=== PATIENT | female | born 1965 | race Caucasian/White ===

== ENCOUNTER 2021-12-09 14:34 | Observation (INO) ==
--- NOTE | 2021-12-09 14:46 | Emergency Department Note ---
Impression & Plan Facial droop, Acute hyponatremia, Metabolic acidosis, Slurred speech ED Provider Note NAME: MARTHA VELAZQUEZ AGE: 56 SEX: F : 1965 ARRIVES VIA: Ambulance INFORMANT: Patient, EMS ED PROVIDER(S): Asim Matute DO CHIEF COMPLAINT: Weakness HPI:. She notes she has not been feeling well for the past 3 days. She called EMS as she felt like she was short of breath. EMS noted slurred speech left- sided facial droop as well as a left upper extremity weakness and called a stroke alert and they brought her in. Patient denies any headache or change in vision. No chest pain. Denies any shortness of breath currently. No dysuria urgency or frequency. No other exacerbating or remitting factor history is limited as the patient was only answering yes/no questions s. ROS: See above HPI for pertinent positives & negatives. Review of systems was limited secondary to patient only answering yes and no PAST MEDICAL HISTORY:See Below PAST SURGICAL HISTORY:See Below FAMILY HISTORY:See Below SOCIAL HISTORY:See Below HOME MEDICATIONS:See Below ALLERGIES:See Below VITALS:See Below PHYSICAL EXAMINATION: GENERAL: Sitting up in stretcher, alert, chronically ill-appearing, disheveled EYE EXAM: normal conjunctiva. PERRL and EOM's intact. OROPHARYNX: mucous membranes are dry NECK: supple, no nuchal rigidity, no adenopathy, non-tender LUNGS: Clear to auscultation. Normal chest wall mechanics HEART: no murmurs, S1 normal and S2 normal ABDOMEN: abdomen soft, non-tender, normo-active bowel sounds, no masses, no rebound or guarding. UPPER EXTREMITIES: upper extremities are grossly normal. LOWER EXTREMITIES: No pitting edema. NEURO EXAM: Awake alert oriented to person but not year, left-sided facial droop, slurred speech, left upper extremity is weak with grasp as well as flexion extension at the wrist elbow and shoulder. Difficult the assessing the lower extremities but she is able to lift on her own and resist weight. Left appears to be slightly weaker than right MEDICAL DECISION MAKING: Patient is a 56-year-old female with a past medical history of GERD, hyperlipidemia and diabetes who presents ER for above-stated complaint. IV was established blood work was obtained. Labs show mild leukocytosis of 12,000. He moglobin was elevated at 16. Platelets were appropriate at 375. BMP with mild hyponatremia 131. CO2 was slightly low at 20. Glucose was elevated to 75. LFTs bilirubin was unremarkable. UA was contaminated. COVID was negative. Patient was given IV fluids. CTs as well as angios the head and neck were negative. Discussed with [place] telest[facility] Dr. Salinas and they agree with holding on tPA due to the last known well was about 3 days ago. Triage Nursing notes reviewed. Limited review of prior medical records performed Vital Signs: reviewed and remarkable for HTN Differential diagnosis: Differential Diagnosis includes but is not limited to ischemic Stroke, hemorrhagic stroke, bells palsy, mass, neoplasm, migraine headache, seizure, s ubarachnoid hemorrhage, TIA, and transient global amnesia. ER treatment provided: See below Diagnostics interpreted by me: ECG: This tachycardia rate of 119 Normal axis No PVCs QTC 447 Cardiac Monitoring: An order was placed for continuous cardiac monitoring. The monitor shows a rate of 112 with sinus rhythm. Laboratory studies: As stated above and show below. Imaging studies: CT as well as angios the head and neck were negative Consultation(s): Discussed with case here hospitalist for further evaluation Procedures: none Critical Care: None Past Med/Surg History Medical History (Updated 12/09/21 @ 16:38 by Asim Matute DO) Anxiety and depression Arthritis Contreras esophagus Cardiac murmur MILD/NO CARDS Chronic kidney disease ? STAGE Diabetes mellitus, type 2 GERD (gastroesophageal reflux disease) Hx of blood clots SUPERFICIAL BLOOD IN LEG>7 YEARS AGO Hyperlipidemia Hypertension Seasonal allergies Sleep apnea CPAP RECALLED>DOES NOT HAVE DEVICE Surgical History Family history of reaction to anesthesia DAUGHTER>SLOW TO WAKE UP H/O hernia repair AT 3 MONTHS OF AGE H/O shoulder surgery LEFT History of colonoscopy History of esophagogastroduodenoscopy (EGD) History of tonsillectomy Family History Mother Family history of diabetes mellitus Brother Family history of diabetes mellitus Grandfather (Maternal) Family hx of colon cancer Social History Smoking Status: Unknown if ever smoked Second Hand Exposure: Yes (IN THE PAST); Hx Alcohol Use: No Preferred Language: Mohawk [employer] Required: No Beliefs That Will Affect Care: None Current Living Situation: Alone Feels Safe at Home: Yes Assistive Devices: Glasses Allergies Allergies Allergy/AdvReac Type Severity Reaction Status Date / Time latex Allergy Mild RASH, ITCHY Verified 12/09/21 15:00 Home Meds Home Medications Medication Instructions Recorded Confirmed aspirin 81 mg tablet,delayed 81 mg PO HS 09/26/21 12/09/21 release atorvastatin 20 mg tablet 20 mg PO HS 09/26/21 12/09/21 cholecalciferol (vitamin D3) 50 50 mcg PO QAM 09/26/21 12/09/21 mcg (2,000 unit) capsule (Vitamin D3) dulaglutide 3 mg/0.5 mL 3 mg SUBCUT WK 09/26/21 12/09/21 subcutaneous pen injector (Trulicity) glipizide 5 mg tablet 5 mg PO QAM 09/26/21 12/09/21 losartan 100 mg tablet 100 mg PO QAM 09/26/21 12/09/21 metoprolol succinate 100 mg 100 mg PO QAM 09/26/21 12/09/21 tablet,extended release 24 hr omeprazole 40 mg capsule,delayed 40 mg PO DAILYBB 09/26/21 12/09/21 release paroxetine HCl 40 mg tablet 40 mg PO HS 09/26/21 12/09/21 ropinirole 0.5 mg tablet 1 mg PO HS 09/26/21 12/09/21 trazodone 100 mg tablet 100 mg PO HS 09/26/21 12/09/21 apple cider vinegar 500 mg tablet 500 mg PO DAILY 12/09/21 12/09/21 cyclobenzaprine 5 mg tablet 5 mg PO TID PRN 12/09/21 12/09/21 diclofenac sodium 1 % topical gel 2 g TOPICAL TID PRN 12/09/21 12/09/21 famotidine 40 mg tablet 40 mg PO HS PRN 12/09/21 12/09/21 ketorolac 10 mg tablet 10 mg PO DIRECTED PRN 12/09/21 12/09/21 levocetirizine 5 mg tablet (Xyzal) 5 mg PO DAILY 12/09/21 12/09/21 omega-3 fatty acids 1,000 mg 1,000 mg PO DAILY 12/09/21 12/09/21 capsule Results & Data (ED) Vital Signs Vital Signs - 24 hr 12/09/21 14:47 Temperature 36.8 C Temperature Source Oral Pulse Rate 126 H Respiratory Rate 16 Respiratory Effort / Characteristics Non-Labored Respiratory Depth Normal Blood Pressure 140/111 H Blood Pressure Mean 120 Pulse Oximetry 99 Oxygen Delivery Method Room Air Sepsis Recent Fever Within 48 Hours No Sepsis New/Unexplained Change in Mental Status Yes Sepsis Action Taken by Nursing Physician Notified Laboratory Data Result diagrams: 12/09/21 15:06 12/09/21 15:06 Lab Results 12/09/21 12/09/21 12/09/21 Range/Units 15:06 15:06 15:06 WBC 12.75 H (4.8-10.8) K/uL RBC 5.31 (4.2-5.4) M/uL Hgb 16.6 H (12.0-16.0) g/dL POC Hgb (12.0-16.0) g/dl Hct 48.7 H (37-47) % POC Hct (37-47) % MCV 91.7 (80-100) fL MCH 31.3 (25-34) pg MCHC 34.1 (32-36) g/dL RDW Std Deviation 45.6 (36.4-46.3) fL RDW Coeff of Gregorio 13.7 (11.5-14.5) % Plt Count 375 (130-400) K/uL MPV 9.2 (7.4-10.4) fL Immature Gran % (Auto) 0.2 % Neut % (Auto) 66.5 % Lymph % (Auto) 25.1 % Jackson % (Auto) 7.6 % Eos % (Auto) 0.4 % Baso % (Auto) 0.2 % Neut # (Auto) 8.49 H (1.4-6.5) K/uL Lymph # (Auto) 3.20 (1.2-3.4) K/uL Jackson # (Auto) 0.97 H (0.11-0.59) K/uL Eos # (Auto) 0.05 (0-0.5) K/uL Baso # (Auto) 0.02 (0-0.2) K/uL Immature Gran # (Auto) 0.02 (0.00-0.02) K/uL PT 11.3 (9.0-12.0) Seconds INR 1.1 (0.9-1.1) APTT 23.3 (21.0-31.0) Seconds PTT Ratio 0.8 POC Sodium (135-144) mmol/L Sodium 131 L (136-145) mmol/L POC Potassium (3.3-5.0) mmol/L Potassium 4.2 (3.5-5.1) mmol/L POC Chloride (101-112) mmol/L Chloride 97 L (98-107) mmol/L Carbon Dioxide 20 L (21-32) mmol/L POC Total CO2 (24-31) mmol/L Anion Gap 14 H (3-11) POC Anion Gap (16-25) mmol/L POC BUN (7-18) mg/dl BUN 16 (6-23) mg/dl Creatinine 1.19 (0.6-1.2) mg/dl POC Creatinine (0.6-1.3) mg/dl Est Cr Clr Drug Dosing 62.5 ml/min Est GFR ( Amer) 59.5 ml/min Est GFR (Non-Af Amer) 51.4 ml/min BUN/Creatinine Ratio 13.4 (10-20) Glucose 275 H (70-99(Fasting)) mg/dl POC Glucose (70-99) mg/dl POC Glucose (other) (70-99) mg/dl Calcium 10.3 H (8.5-10.1) mg/dl POC Ioniz Calcium Marni (1.12-1.32) mmol/l Magnesium 1.2 L (1.7-2.4) mg/dl Total Bilirubin 0.6 (0.2-1.0) mg/dl AST 27 (13-39) U/L ALT 36 (7-52) U/L Alkaline Phosphatase 90 (34-104) U/L Troponin I High Sens 6.8 (0-14) pg/ml Total Protein 7.7 (6.0-8.3) gm/dl Albumin 4.5 (3.4-5.0) gm/dl Globulin 3.2 (2.5-4.0) gm/dl Albumin/Globulin Ratio 1.4 (0.9-2) Urine Color Urine Appearance (Clear) Urine pH (4.5-7.5) Ur Specific [place] (1.000-1.030) Urine Protein (Negative) Urine Glucose (UA) (Negative) Urine Ketones (Negative) Urine Blood (Negative) Urine Nitrite (Negative) Urine Bilirubin (Negative) Urine Urobilinogen (Negative) Ur Leukocyte Esterase (Negative) SARS-CoV-2, RNA, NAAT (NEGATIVE) 12/09/21 12/09/21 12/09/21 Range/Units 15:09 15:10 15:11 WBC (4.8-10.8) K/uL RBC (4.2-5.4) M/uL Hgb (12.0-16.0) g/dL POC Hgb 16.7 H (12.0-16.0) g/dl Hct (37-47) % POC Hct 49 H (37-47) % MCV (80-100) fL MCH (25-34) pg MCHC (32-36) g/dL RDW Std Deviation (36.4-46.3) fL RDW Coeff of Gregorio (11.5-14.5) % Plt Count (130-400) K/uL MPV (7.4-10.4) fL Immature Gran % (Auto) % Neut % (Auto) % Lymph % (Auto) % Jackson % (Auto) % Eos % (Auto) % Baso % (Auto) % Neut # (Auto) (1.4-6.5) K/uL Lymph # (Auto) (1.2-3.4) K/uL Jackson # (Auto) (0.11-0.59) K/uL Eos # (Auto) (0-0.5) K/uL Baso # (Auto) (0-0.2) K/uL Immature Gran # (Auto) (0.00-0.02) K/uL PT (9.0-12.0) Seconds INR (0.9-1.1) APTT (21.0-31.0) Seconds PTT Ratio POC Sodium 133 L (135-144) mmol/L Sodium (136-145) mmol/L POC Potassium 4.2 (3.3-5.0) mmol/L Potassium (3.5-5.1) mmol/L POC Chloride 102 (101-112) mmol/L Chloride (98-107) mmol/L Carbon Dioxide (21-32) mmol/L POC Total CO2 18 L (24-31) mmol/L Anion Gap (3-11) POC Anion Gap 19.0 (16-25) mmol/L POC BUN 15 (7-18) mg/dl BUN (6-23) mg/dl Creatinine (0.6-1.2) mg/dl POC Creatinine 1.1 (0.6-1.3) mg/dl Est Cr Clr Drug Dosing ml/min Est GFR ( Amer) ml/min Est GFR (Non-Af Amer) ml/min BUN/Creatinine Ratio (10-20) Glucose (70-99(Fasting)) mg/dl POC Glucose 279 H 278 H (70-99) mg/dl POC Glucose (other) 282 H (70-99) mg/dl Calcium (8.5-10.1) mg/dl POC Ioniz Calcium Marni 1.06 L (1.12-1.32) mmol/l Magnesium (1.7-2.4) mg/dl Total Bilirubin (0.2-1.0) mg/dl AST (13-39) U/L ALT (7-52) U/L Alkaline Phosphatase (34-104) U/L Troponin I High Sens (0-14) pg/ml Total Protein (6.0-8.3) gm/dl Albumin (3.4-5.0) gm/dl Globulin (2.5-4.0) gm/dl Albumin/Globulin Ratio (0.9-2) Urine Color Urine Appearance (Clear) Urine pH (4.5-7.5) Ur Specific [place] (1.000-1.030) Urine Protein (Negative) Urine Glucose (UA) (Negative) Urine Ketones (Negative) Urine Blood (Negative) Urine Nitrite (Negative) Urine Bilirubin (Negative) Urine Urobilinogen (Negative) Ur Leukocyte Esterase (Negative) SARS-CoV-2, RNA, NAAT (NEGATIVE) 12/09/21 12/09/21 Range/Units 15:18 15:22 WBC (4.8-10.8) K/uL RBC (4.2-5.4) M/uL Hgb (12.0-16.0) g/dL POC Hgb (12.0-16.0) g/dl Hct (37-47) % POC Hct (37-47) % MCV (80-100) fL MCH (25-34) pg MCHC (32-36) g/dL RDW Std Deviation (36.4-46.3) fL RDW Coeff of Gregorio (11.5-14.5) % Plt Count (130-400) K/uL MPV (7.4-10.4) fL Immature Gran % (Auto) % Neut % (Auto) % Lymph % (Auto) % Jackson % (Auto) % Eos % (Auto) % Baso % (Auto) % Neut # (Auto) (1.4-6.5) K/uL Lymph # (Auto) (1.2-3.4) K/uL Jackson # (Auto) (0.11-0.59) K/uL Eos # (Auto) (0-0.5) K/uL Baso # (Auto) (0-0.2) K/uL Immature Gran # (Auto) (0.00-0.02) K/uL PT (9.0-12.0) Seconds INR (0.9-1.1) APTT (21.0-31.0) Seconds PTT Ratio POC Sodium (135-144) mmol/L Sodium (136-145) mmol/L POC Potassium (3.3-5.0) mmol/L Potassium (3.5-5.1) mmol/L POC Chloride (101-112) mmol/L Chloride (98-107) mmol/L Carbon Dioxide (21-32) mmol/L POC Total CO2 (24-31) mmol/L Anion Gap (3-11) POC Anion Gap (16-25) mmol/L POC BUN (7-18) mg/dl BUN (6-23) mg/dl Creatinine (0.6-1.2) mg/dl POC Creatinine (0.6-1.3) mg/dl Est Cr Clr Drug Dosing ml/min Est GFR ( Amer) ml/min Est GFR (Non-Af Amer) ml/min BUN/Creatinine Ratio (10-20) Glucose (70-99(Fasting)) mg/dl POC Glucose (70-99) mg/dl POC Glucose (other) (70-99) mg/dl Calcium (8.5-10.1) mg/dl POC Ioniz Calcium Marni (1.12-1.32) mmol/l Magnesium (1.7-2.4) mg/dl Total Bilirubin (0.2-1.0) mg/dl AST (13-39) U/L ALT (7-52) U/L Alkaline Phosphatase (34-104) U/L Troponin I High Sens (0-14) pg/ml Total Protein (6.0-8.3) gm/dl Albumin (3.4-5.0) gm/dl Globulin (2.5-4.0) gm/dl Albumin/Globulin Ratio (0.9-2) Urine Color Yellow Urine Appearance Clear (Clear) Urine pH 6.5 (4.5-7.5) Ur Specific [place] > 1.045 H (1.000-1.030) Urine Protein Trace H (Negative) Urine Glucose (UA) Trace H (Negative) Urine Ketones 1+ H (Negative) Urine Blood Negative (Negative) Urine Nitrite Negative (Negative) Urine Bilirubin Negative (Negative) Urine Urobilinogen Negative (Negative) Ur Leukocyte Esterase Negative (Negative) SARS-CoV-2, RNA, NAAT NEGATIVE (NEGATIVE) Administered Medications Discontinued Medications Ioversol (Optiray 320 125ml) 120 ml IV ONCE ONE Stop: 12/09/21 14:52 Last Admin: 12/09/21 14:51 Dose: 120 ml Documented by: [id number] Imaging Data Radiologist's Impression: Chest X-Ray 12/09/21 14:08 XR chest 1V portable CLINICAL HISTORY: Stroke Like Symptoms TECHNIQUE: Single frontal radiograph of the chest was obtained. Comparison: None available at the time of this dictation. FINDINGS: No lines and tubes are seen. The cardiomediastinal silhouette is normal. The lungs are clear. No evidence of pleural effusion or pneumothorax. IMPRESSION: No acute chest disease. ACT 112: Negative or not required by law. Electronically signed by: Juan A Allen M.D. 12/09/2021 3:[address] 12/09/21 14:08 CT head/brain wo con CLINICAL HISTORY: Stroke Like Symptoms Technique: Contiguous axial CT images of the head were acquired from the base of the skull to the vertex without intravenous contrast administration. Images were viewed in brain, subdural and bone windows. Automated dose lowering techniques and/or adjustment according to patient size were utilized for this exam. Comparison: None available at the time of this dictation. Findings: The ventricles, basal cisterns, and cerebral sulci are normal. There is no acute intracranial hemorrhage or evidence of acute territorial infarction. Neither mass effect, shift of the midline structures, nor abnormal extra-axial fluid collections are shown. Imaged portions of the paranasal sinuses and mastoid air cells are clear. The orbits appear normal. There are no acute fractures of the calvaria or scalp swelling. Impression: No acute intracranial hemorrhage, no evidence of acute territorial infarction or other acute intracranial disease process. ACT 112: Negative or not required by law. Electronically signed by: Juan A Allen M.D. 12/09/2021 2:52 PM Head CTA 12/09/21 14:08 CTA ANGIOGRAPHY OF THE HEAD CLINICAL HISTORY: Stroke Like Symptoms COMPARISON STUDY: No previous studies for comparison. TECHNIQUE: Helical axial images of the head were obtained following uneventful intravenous administration of 120 cc of Optiray. Sagittal and coronal reconstructions were viewed as well as maximal intensity projections on an independent 3-D workstation. Automated exposure control was utilized for the study. A dose lowering technique was utilized adhering to the principles of ALARA. FINDINGS: Please note that the head CT will be reported separately. Brain volume is normal. Ventricular system is normal. Basal cisterns are patent. This exam is mildly compromised by artifact. However, the bilateral M1, M2, A1 and A2 segments appear patent. There is no central vessel occlusion. There is no intracranial aneurysm. Posterior circulation is intact. There are bilateral posterior communicating arteries. IMPRESSION: Exam mildly compromised by artifact. No central vessel occlusion or intracranial aneurysm identified. ACT 112: Negative or not required by law. Electronically signed by: Enmanuel Quesada M.D. 12/09/2021 3:05 PM Neck CTA 12/09/21 14:08 CT ANGIOGRAPHY OF THE NECK WITH CONTRAST CLINICAL HISTORY: Stroke Like Symptoms COMPARISON STUDY: No previous studies for comparison. Technique: CT angiography of the carotid and vertebral arteries was obtained using Optiray and 3D reconstruction on an independent workstation. NASCET criteria was utilized. Automated exposure control was utilized for the study. A dose lowering technique was utilized adhering to the principles of ALARA. Findings: This exam is mildly compromised by artifact. The bilateral common carotid, cervical internal carotid and vertebral arteries are patent. Left vertebral artery is dominant. No stenosis or dissection within these vessels. There is no aneurysm within the neck. There is mild dilatation of the main pulmonary artery. Visualized portions of the lung apices are unremarkable. There is no acute cervical spine fracture. There is no cervical lymphadenopathy. IMPRESSION: Exam mildly compromised by artifact. No stenosis or dissection within the bilateral common carotid, cervical internal carotid or vertebral arteries. ACT 112: Negative or not required by law. Electronically signed by: Enmanuel Quesada M.D. 12/09/2021 3:25 PM Discharge Plan Visit Data Chief Complaint: Stroke Alert Stated Complaint: STROKE ED Provider: Asim Matute Discharge Problem: Facial droop, Acute hyponatremia, Metabolic acidosis, Slurred speech Forms Stand Alone Forms: [facility] [place] [facility] Prescriptions Prescriptions: No Action atorvastatin 20 mg Tablet 20 mg PO HS RF: 0 metoprolol succinate 100 mg Tablet Extended Release 24 Hr 100 mg PO QAM RF: 0 omeprazole 40 mg Capsule,Delayed Release(Dr/Ec) 40 mg PO DAILYBB RF: 0 aspirin [Aspir-81] 81 mg Tablet,Delayed Release (Dr/Ec) 81 mg PO HS RF: 0 trazodone 100 mg Tablet 100 mg PO HS RF: 0 ropinirole [Requip] 0.5 mg Tablet 1 mg PO HS RF: 0 paroxetine HCl 40 mg Tablet 40 mg PO HS RF: 0 losartan 100 mg Tablet 100 mg PO QAM RF: 0 cholecalciferol (vitamin D3) [Vitamin D3] 50 mcg (2,000 unit) Capsule 50 mcg PO QAM RF: 0 Trulicity 3 mg/0.5 mL Pen Injector 3 mg SUBCUT WK RF: 0 glipizide 5 mg Tablet 5 mg PO QAM RF: 0 famotidine 40 mg Tablet 40 mg PO HS PRN (Reason: Heartburn) RF: 0 ketorolac 10 mg Tablet 10 mg PO DIRECTED PRN (Reason: Back Pain) RF: 0 cyclobenzaprine 5 mg Tablet 5 mg PO TID PRN (Reason: MUSCLE SPASMS) RF: 0 levocetirizine [Xyzal] 5 mg Tablet 5 mg PO DAILY RF: 0 omega-3 fatty acids 1,000 mg Capsule 1,000 mg PO DAILY RF: 0 apple cider vinegar 500 mg Tablet 500 mg PO DAILY RF: 0 diclofenac sodium 1 % gel 2 g TOPICAL TID PRN (Reason: Pain) RF: 0 Referrals Referrals: [facility],Medicine [Primary Care Provider] -
[2021-12-09] MEDS ORDERED: OPTIRAY 320 125ml IV ONE (14:51)
--- NOTE | 2021-12-09 14:53 | CT Scan Report ---
CT head/brain wo con CLINICAL HISTORY: Stroke Like Symptoms Technique: Contiguous axial CT images of the head were acquired from the base of the skull to the kalyani treasure without intravenous contrast administration. Images were viewed in brain, subdural and bone [facility] . Automated dose lowering techniques and/or adjustment according to patient size were utilized for this exam. Comparison: None available at the time of this dictation. Findings: The ventricles, basal cisterns, and cerebral sulci are normal. There is no acute intracranial hemorrh age or evidence of acute territorial infarction. Neither mass effect, shift of the midline structures , nor abnormal extra-axial fluid collections are shown. Imaged portions of the paranasal sinuses and mastoid air cells are clear. The orbits appear normal. There are no acute fractures of the calvaria or scalp swelling. Impression: No acute intracranial hemorrhage, no evidence of acute territorial infarction or other acute intracra nial disease process. ACT 112: Negative or not required by law. Electronically signed by: Juan A Allen M.D. 12/09/2021 2:52 PM
--- NOTE | 2021-12-09 15:06 | CT Scan Report ---
CTA ANGIOGRAPHY OF THE HEAD CLINICAL HISTORY: Stroke Like Symptoms COMPARISON STUDY: No previous studies for comparison. TECHNIQUE: Helical axial images of the head were obtained following uneventful intravenous administr ation of 120 cc of Optiray. Sagittal and coronal reconstructions were viewed as well as maximal inten sity projections on an independent 3-D workstation. Automated exposure control was utilized for the study. A dose lowering technique was utilized adhering to the principles of ALARA. FINDINGS: Please note that the head CT will be reported separately. Brain volume is normal. Ventricul ar system is normal. Basal cisterns are patent. This exam is mildly compromised by artifact. However, the bilateral M1, M2, A1 and A2 segments appear patent. There is no central vessel occlusion. There is no intracranial aneurysm. Posterior circulation is intact. There are bilateral posterior communica ting arteries. IMPRESSION: Exam mildly compromised by artifact. No central vessel occlusion or intracranial aneurys m identified. ACT 112: Negative or not required by law. Electronically signed by: Enmanuel Quesada M.D. 12/09/2021 3:05 PM
[2021-12-09 15:18] LABS: Basophils # (auto) 0.02 K/uL (0-0.2); Basophils % (auto) 0.2 %; Eosinophils # (auto) 0.05 K/uL (0-0.5); Eosinophils % (auto) 0.4 %; Hematocrit (blood only) 48.7 % (37-47); Hemoglobin 16.6 g/dL (12.0-16.0); Immature Granulocytes # (auto) 0.02 K/uL (0.00-0.02); Immature Granulocytes % (auto) 0.2 %; Lymphocytes % (auto) 25.1 %; Mean Corpuscular Hemoglobin 31.3 pg (25-34); Mean Corpuscular Hgb Conc 34.1 g/dL (32-36); Mean Corpuscular Volume 91.7 fL (80-100); Mean Platelet Volume 9.2 fL (7.4-10.4); Monocytes # (auto) 0.97 K/uL (0.11-0.59); Monocytes % (auto) 7.6 %; Neutrophils # (auto) 8.49 K/uL (1.4-6.5); Neutrophils % (auto) 66.5 %; Platelet Count 375 K/uL (130-400); RDW Coefficient of Variation 13.7 % (11.5-14.5); RDW Standard Deviation 45.6 fL (36.4-46.3); Red Blood Count 5.31 M/uL (4.2-5.4); White Blood Count 12.75 K/uL (4.8-10.8)
[2021-12-09 15:23] LABS: iSTAT Creatinine 1.1 mg/dl (0.6-1.3); iSTAT Hemoglobin 16.7 g/dl (12.0-16.0); iSTAT Ionized Calcium 1.06 mmol/l (1.12-1.32); iSTAT Potassium 4.2 mmol/L (3.3-5.0)
--- NOTE | 2021-12-09 15:26 | CT Scan Report ---
CT ANGIOGRAPHY OF THE NECK WITH CONTRAST CLINICAL HISTORY: Stroke Like Symptoms COMPARISON STUDY: No previous studies for comparison. Technique: CT angiography of the carotid and vertebral arteries was obtained using Optiray and 3D rec onstruction on an independent workstation. NASCET criteria was utilized. Automated exposure control was utilized for the study. A dose lowering technique was utilized adhering to the principles of ALA RA. Findings: This exam is mildly compromised by artifact. The bilateral common carotid, cervical interna l carotid and vertebral arteries are patent. Left vertebral artery is dominant. No stenosis or dissec tion within these vessels. There is no aneurysm within the neck. There is mild dilatation of the main pulmonary artery. Visualized portions of the lung apices are unremarkable. There is no acute cervica l spine fracture. There is no cervical lymphadenopathy. IMPRESSION: Exam mildly compromised by artifact. No stenosis or dissection within the bilateral common carotid, c ervical internal carotid or vertebral arteries. ACT 112: Negative or not required by law. Electronically signed by: Enmanuel Quesada M.D. 12/09/2021 3:25 PM
--- NOTE | 2021-12-09 15:35 | XRay Report ---
XR chest 1V portable CLINICAL HISTORY: Stroke Like Symptoms TECHNIQUE: Single frontal radiograph of the chest was obtained. Comparison: None available at the time of this dictation. FINDINGS: No lines and tubes are seen. The cardiomediastinal silhouette is normal. The lungs are clear. No evid ence of pleural effusion or pneumothorax. IMPRESSION: No acute chest disease. ACT 112: Negative or not required by law. Electronically signed by: Juan A Allen M.D. 12/09/2021 3:33 PM
[2021-12-09 15:51] LABS: INR 1.1 (0.9-1.1); Partial Thromboplastin Ratio 0.8; Partial Thromboplastin Time 23.3 Seconds (21.0-31.0); Prothrombin Time 11.3 Seconds (9.0-12.0)
[2021-12-09 16:04] LABS: Appearance Urine Clear (Clear); Bacteria Urine Automated Negative (Negative); Bilirubin Urine Negative (Negative); Blood Urine Negative (Negative); Color Urine Yellow; Epithelial Cell Urine Auto >30 /lpf (0-5); Glucose Urine UA Trace (Negative); Ketones Urine 1+ (Negative); Leukocyte Esterase Urine Negative (Negative); Nitrite Urine Negative (Negative); Protein Urine Trace (Negative); RBC Urine Automated 0-4 /hpf (0-4); Specific Gravity Urine > 1.045 (1.000-1.030); Urobilinogen Urine Negative (Negative); pH Urine 6.5 (4.5-7.5)
[2021-12-09 16:11] LABS: Albumin Globulin Ratio 1.4 (0.9-2); Albumin Level 4.5 gm/dl (3.4-5.0); BUN Creatinine Ratio 13.4 (10-20); Bilirubin,Total 0.6 mg/dl (0.2-1.0); Calcium 10.3 mg/dl (8.5-10.1); Creatinine Clr Calc Pharmacy 62.5 ml/min; Est GFR (African American) 59.5 ml/min; Est GFR (Non-African American) 51.4 ml/min; Globulin 3.2 gm/dl (2.5-4.0); Magnesium 1.2 mg/dl (1.7-2.4); Potassium 4.2 mmol/L (3.5-5.1); Total Protein 7.7 gm/dl (6.0-8.3)
[2021-12-09 16:12] LABS: Troponin I High Sensitivity 6.8 pg/ml (0-14)
[2021-12-09] MEDS ORDERED: SODIUM CHLORIDE 0.9% 1000ML 1,000 ML IV ONE (16:32)
[2021-12-09 16:34] LABS: Renal Epithelial Cells Urine 0-5 /lpf (0-5)
--- NOTE | 2021-12-09 17:40 | History & Physical Report ---
Date of Service December 09, 2021 Assessment & Plan (1) Stroke-like symptom: Plan: In the ED, symptoms have mostly resolved. Initial CT negative for ischemia. Per telestroke, not a candidate for tPA with last known well 2-3 days ago. - Admit to PCU for observation - Neuro checks per protocol - Consult neurology - Continue aspirin - MRI Brain, ECHO - Trend troponin - PT/OT/Speech consults per stroke protocol (2) Hypomagnesemia: Plan: Replete with IV Mag x 3 g - recheck tonight and in AM (3) Acute hyponatremia: (4) CKD (chronic kidney disease) stage 3, GFR 30-59 ml/min: (5) Hyperlipidemia: Plan: - Lipid panel in AM - Continue statin - pt unsure if she has been taking it regularly as outpatient (6) GERD (gastroesophageal reflux disease): (7) Diabetes mellitus, type 2: Plan: - Check A1c in AM - Diabetic diet - Insulin sliding scale (8) Seasonal allergies: (9) Sleep apnea: Plan: - Resume CPAP with prior settings - will need outpatient sleep follow-up Plan: Holding BP meds for now - re-evaluate in AM Continue other home medications as appropriate Pt seen and reviewed with attending physician, Dr. Tovar. Plan of care discussed and as outlined above. Code Status: Full code DVT Prophylaxis: SubQ heparin Mandy Mendosa PA-C History of Present Illness Chief Complaint: Stroke Alert Primary Care Provider: Skylar Guzman PA-C ([facility]) This is a 56 y/o female with a PMH of DM2, HTN, dyslipidemia, JOSEE not currently on CPAP, depression, anxiety, CKD3, GERD w/ hx Contreras's, and obesity who presents to the ED this afternoon as a stroke alert. Pt reports feeling okay on Thursday (two days ago). Yesterday, she felt not right and like "something was off in my head" but no significant pain or dyspnea. Last night, she slept okay but when she woke up this morning she "felt like crap" but no specific pain. She checked her blood sugar but can't remember what it was. She took her AM meds hoping this would help her feel better but instead she felt worse, got really dizzy and had to sit down so she called 911. When EMS arrived, she apparently had a mild left facial droop, LUE weakness, and slurred speech so a stroke alert was called. Pt has limited to no recollection of anything after calling 911 to when I saw her in the ED for admission. In the ED, her symptoms have gradually improved although she reports a residual headache behind her left eye. The weakness and slurred speech have resolved. She also reports significant anxiety related to today's events and depression after the recent of her mother in October. She essentially lives alone as her significant other is a long-distance tow truck operator and is away most of the week. Allergies Allergy/AdvReac Type Severity Reaction Status Date / Time latex Allergy Mild RASH, ITCHY Verified 12/09/21 15:00 Home Medications Medication Instructions Recorded Confirmed Type aspirin 81 mg tablet,delayed 81 mg PO HS 09/26/21 12/09/21 History release atorvastatin 20 mg tablet 20 mg PO HS 09/26/21 12/09/21 History cholecalciferol (vitamin D3) 50 50 mcg PO QAM 09/26/21 12/09/21 History mcg (2,000 unit) capsule (Vitamin D3) dulaglutide 3 mg/0.5 mL 3 mg SUBCUT WK 09/26/21 12/09/21 History subcutaneous pen injector (Trulicity) losartan 100 mg tablet 100 mg PO QAM 09/26/21 12/09/21 History metoprolol succinate 100 mg 100 mg PO QAM 09/26/21 12/09/21 History tablet,extended release 24 hr omeprazole 40 mg capsule,delayed 40 mg PO DAILYBB 09/26/21 12/09/21 History release paroxetine HCl 40 mg tablet 40 mg PO HS 09/26/21 12/09/21 History ropinirole 0.5 mg tablet 1 mg PO HS 09/26/21 12/09/21 History trazodone 100 mg tablet 100 mg PO HS 09/26/21 12/09/21 History apple cider vinegar 500 mg tablet 500 mg PO DAILY 12/09/21 12/09/21 History cyclobenzaprine 5 mg tablet 5 mg PO TID PRN 12/09/21 12/09/21 History diclofenac sodium 1 % topical gel 2 g TOPICAL TID PRN 12/09/21 12/09/21 History famotidine 40 mg tablet 40 mg PO HS 12/09/21 12/09/21 History glipizide 5 mg tablet, extended 5 mg PO QAM 12/09/21 12/09/21 History release 24 hr levocetirizine 5 mg tablet (Xyzal) 5 mg PO DAILY 12/09/21 12/09/21 History omega-3 fatty acids 1,000 mg 1,000 mg PO DAILY 12/09/21 12/09/21 History capsule Past Med/Surg History Medical History (Updated 12/09/21 @ 18:07 by Addis Mendosa PA-C) Anxiety and depression Arthritis Contreras esophagus Cardiac murmur MILD/NO CARDS Chronic kidney disease ? STAGE Diabetes mellitus, type 2 GERD (gastroesophageal reflux disease) Hx of blood clots SUPERFICIAL BLOOD IN LEG>7 YEARS AGO Hyperlipidemia Hypertension Seasonal allergies Sleep apnea CPAP RECALLED>DOES NOT HAVE DEVICE. Previously used auto CPAP 5-20 cm Surgical History Family history of reaction to anesthesia DAUGHTER>SLOW TO WAKE UP H/O hernia repair AT 3 MONTHS OF AGE H/O shoulder surgery LEFT History of colonoscopy History of esophagogastroduodenoscopy (EGD) History of tonsillectomy Family History (Updated 12/09/21 @ 17:58 by Addis Mendosa PA-C) Mother Family history of diabetes mellitus Heart disease Brother Family history of diabetes mellitus Heart disease Grandfather (Maternal) Family hx of colon cancer Father Heart disease Denies family history of Stroke Social History (Updated 12/09/21 @ 17:59 by Addis Mendosa PA-C) Smoking Status: Never smoker Second Hand Exposure: Yes (IN THE PAST); Hx Alcohol Use: No Hx Substance Use: No Preferred Language: Bel[place]an Parimutuel Ticket [employer]er Required: No Beliefs That Will Affect Care: None Current Living Situation: Alone Feels Safe at Home: Yes Assistive Devices: Glasses Review of Systems Review of Systems: All systems reviewed & are unremarkable except as noted in HPI & below Constitutional: + anorexia; no fever, no chills and no sweats Eyes: no diplopia Ear, Nose, Mouth, Throat: no nasal congestion, no sore throat and no dysphagia Respiratory: no cough, no dyspnea and no wheezing Cardiovascular: + lightheadedness; no chest pain, no palpitations and no edema Gastrointestinal: no abdominal pain, no nausea, no vomiting, no diarrhea/loose stools and no blood in stools Genitourinary: no dysuria and no hematuria Musculoskeletal: no back pain and no neck pain Integumentary: no rash and no yellowing of the skin Neurologic: as per Subjective / HPI Psychiatric: + depression and + anxiety Physical Exam Constitutional: + morbidly obese; no acute distress Eyes: PERRL, conjunctivae normal, anicteric sclerae Neck: trachea midline Respiratory: no respiratory distress and no labored breathing Auscultation: lungs clear to auscultation bilaterally; no rales, no rhonchi and no wheezes Cardiovascular: Rate/Rhythm: regular rhythm and + tachycardic Vessels: dorsalis pedis pulses present and radial pulses present Extremities: no pedal edema Gastrointestinal (Abdomen): Inspection/Auscultation: normal bowel sounds; abdomen not distended Percussion/Palpation: abdomen soft; abdomen nontender Musculoskeletal: Head/Neck/Chest: normocephalic, head atraumatic and neck supple Skin: no rashes, warm and dry Neurologic: CN's II-XI intact bilaterally and moves all extremities; no focal motor deficits and not confused Psychiatric: Orientation: alert and oriented x 3 Affect: + anxious affect Mood: + depressed mood and + anxious mood Results & Data Results & Data ([facility]) Vital Signs (Past 12 Hours) Vital Signs Temp Pulse Resp BP Pulse Ox 12/09/21 14:47 36.8 C 126 H 16 140/111 H 99 Laboratory Results Laboratory Results - last 24 hr 12/09/21 12/09/21 12/09/21 15:06 15:06 15:06 WBC 12.75 H RBC 5.31 Hgb 16.6 H POC Hgb Hct 48.7 H POC Hct MCV 91.7 MCH 31.3 MCHC 34.1 RDW Std Deviation 45.6 RDW Coeff of Gregorio 13.7 Plt Count 375 MPV 9.2 Immature Gran % (Auto) 0.2 Neut % (Auto) 66.5 Lymph % (Auto) 25.1 Stephens % (Auto) 7.6 Eos % (Auto) 0.4 Baso % (Auto) 0.2 Neut # (Auto) 8.49 H Lymph # (Auto) 3.20 Stephens # (Auto) 0.97 H Eos # (Auto) 0.05 Baso # (Auto) 0.02 Immature Gran # (Auto) 0.02 PT 11.3 INR 1.1 APTT 23.3 PTT Ratio 0.8 POC Sodium Sodium 131 L POC Potassium Potassium 4.2 POC Chloride Chloride 97 L Carbon Dioxide 20 L POC Total CO2 Anion Gap 14 H POC Anion Gap POC BUN BUN 16 Creatinine 1.19 POC Creatinine Est Cr Clr Drug Dosing 62.5 Est GFR ( Amer) 59.5 Est GFR (Non-Af Amer) 51.4 BUN/Creatinine Ratio 13.4 Glucose 275 H POC Glucose POC Glucose (other) Calcium 10.3 H POC Ioniz Calcium Marni Magnesium 1.2 L Total Bilirubin 0.6 AST 27 ALT 36 Alkaline Phosphatase 90 Troponin I High Sens 6.8 Total Protein 7.7 Albumin 4.5 Globulin 3.2 Albumin/Globulin Ratio 1.4 Urine Color Urine Appearance Urine pH Ur Specific [place] Urine Protein Urine Glucose (UA) Urine Ketones Urine Blood Urine Nitrite Urine Bilirubin Urine Urobilinogen Ur Leukocyte Esterase Urine WBC (Auto) Urine RBC (Auto) U Hyaline Cast (Auto) U Epithel Cells (Auto) Urine Bacteria (Auto) Ur Renal Epithelial Cell Granular Casts SARS-CoV-2, RNA, NAAT 12/09/21 12/09/21 12/09/21 15:09 15:10 15:11 WBC RBC Hgb POC Hgb 16.7 H Hct POC Hct 49 H MCV MCH MCHC RDW Std Deviation RDW Coeff of Gregorio Plt Count MPV Immature Gran % (Auto) Neut % (Auto) Lymph % (Auto) Stephens % (Auto) Eos % (Auto) Baso % (Auto) Neut # (Auto) Lymph # (Auto) Stephens # (Auto) Eos # (Auto) Baso # (Auto) Immature Gran # (Auto) PT INR APTT PTT Ratio POC Sodium 133 L Sodium POC Potassium 4.2 Potassium POC Chloride 102 Chloride Carbon Dioxide POC Total CO2 18 L Anion Gap POC Anion Gap 19.0 POC BUN 15 BUN Creatinine POC Creatinine 1.1 Est Cr Clr Drug Dosing Est GFR ( Amer) Est GFR (Non-Af Amer) BUN/Creatinine Ratio Glucose POC Glucose 279 H 278 H POC Glucose (other) 282 H Calcium POC Ioniz Calcium Marni 1.06 L Magnesium Total Bilirubin AST ALT Alkaline Phosphatase Troponin I High Sens Total Protein Albumin Globulin Albumin/Globulin Ratio Urine Color Urine Appearance Urine pH Ur Specific [place] Urine Protein Urine Glucose (UA) Urine Ketones Urine Blood Urine Nitrite Urine Bilirubin Urine Urobilinogen Ur Leukocyte Esterase Urine WBC (Auto) Urine RBC (Auto) U Hyaline Cast (Auto) U Epithel Cells (Auto) Urine Bacteria (Auto) Ur Renal Epithelial Cell Granular Casts SARS-CoV-2, RNA, NAAT 12/09/21 12/09/21 15:18 15:22 WBC RBC Hgb POC Hgb Hct POC Hct MCV MCH MCHC RDW Std Deviation RDW Coeff of Gregorio Plt Count MPV Immature Gran % (Auto) Neut % (Auto) Lymph % (Auto) Stephens % (Auto) Eos % (Auto) Baso % (Auto) Neut # (Auto) Lymph # (Auto) Stephens # (Auto) Eos # (Auto) Baso # (Auto) Immature Gran # (Auto) PT INR APTT PTT Ratio POC Sodium Sodium POC Potassium Potassium POC Chloride Chloride Carbon Dioxide POC Total CO2 Anion Gap POC Anion Gap POC BUN BUN Creatinine POC Creatinine Est Cr Clr Drug Dosing Est GFR ( Amer) Est GFR (Non-Af Amer) BUN/Creatinine Ratio Glucose POC Glucose POC Glucose (other) Calcium POC Ioniz Calcium Marni Magnesium Total Bilirubin AST ALT Alkaline Phosphatase Troponin I High Sens Total Protein Albumin Globulin Albumin/Globulin Ratio Urine Color Yellow Urine Appearance Clear Urine pH 6.5 Ur Specific [place] > 1.045 H Urine Protein Trace H Urine Glucose (UA) Trace H Urine Ketones 1+ H Urine Blood Negative Urine Nitrite Negative Urine Bilirubin Negative Urine Urobilinogen Negative Ur Leukocyte Esterase Negative Urine WBC (Auto) 5-10 H Urine RBC (Auto) 0-4 U Hyaline Cast (Auto) 5-10 H U Epithel Cells (Auto) >30 H Urine Bacteria (Auto) Negative Ur Renal Epithelial Cell 0-5 Granular Casts 1-5 H SARS-CoV-2, RNA, NAAT NEGATIVE Diagnostic Findings Chest X-ray 12/09/21 - IMPRESSION: No acute chest disease. CT Head 12/09/21 - Impression: No acute intracranial hemorrhage, no evidence of acute territorial infarction or other acute intracranial disease process. CTA Head 12/09/21 - IMPRESSION: Exam mildly compromised by artifact. No central vessel occlusion or intracranial aneurysm identified. CTA Neck 12/09/21 - IMPRESSION: Exam mildly compromised by artifact. No stenosis or dissection within the bilateral common carotid, cervical internal carotid or vertebral arteries. Medications Administered Magnesium Sulfate/Dextrose (Magnesium Sulfate / D5w) 1 gm in 100 mls @ 50 mls/hr IV Q2H MELISA Stop: 12/09/21 23:29 Last Admin: 12/09/21 17:41 Dose: 50 mls/hr Documented by: [id number] Discontinued Medications Sodium Chloride (Nss 1000ml) 1,000 mls @ 999 mls/hr IV .Q1H1M ONE Stop: 12/09/21 17:32 Last Admin: 12/09/21 17:30 Dose: 999 mls/hr Documented by: [id number] Ioversol (Optiray 320 125ml) 120 ml IV ONCE ONE Stop: 12/09/21 14:52 Last Admin: 12/09/21 14:51 Dose: 120 ml Documented by: [id number] Code Status & VTE Plan VTE Prophylaxis Plan VTE Prophylaxis will be ordered: Yes Supervising Physician Co-Signing Physician Notes 56-year-old lady who presented with strokelike symptoms, symptoms mostly resolved by the time of presentation. Initial CT negative for ischemia. Also found to be hypomagnesemia, repleted. Per telestroke, patient not candidate for tPA. MRI brain. Neuro consult. Echo. Hold blood pressure medication to allow for permissive hypertension. Lipid panel in AM. Patient also had lost her mother in the last month, had lost her brother and father in the last 3-year. Patient appears sad, has lost appetite, uses trazodone for sleeping. Patient offered behavioral health counseling or psychiatry consult, patient denied. Patient is in talks with her psychiatry doctor in [place], last follow-up was last week prior to arrival. At bedside exam, patient reports improvement in her dizziness symptoms and funny sensation in her forehead which were the main complaints that brought her to the ED today. Upon exam GENERAL: Alert and oriented x3. NAD, on RA. Obese. Appears sad. HEENT: No pallor, no icterus. Pupils equal, round and reactive to light. Oral mucosa moist. NECK: No JVD, no neck masses. HEART: S1 and S2 heard. Regular rate and rhythm. No murmur, no gallop. RESPIRATORY SYSTEM: Normal AP diameter. No accessory muscle use. No wheezing, no crackles. ABDOMEN: Soft, bowel sounds present, nontender, no distention. CENTRAL NERVOUS SYSTEM: No facial droop. Speech is clear. Obeys simple commands. Moves extremities. EXTREMITIES: No edema, no erythema seen. I have seen and examined the patient and have discussed the case with the provider above. I agree with the assessment and plan as stated.
[2021-12-09] MEDS: MAGNESIUM SULFATE / D5W 1 GM/100 ML BAG IV SCH ×3 (17:41→22:44)
--- NOTE | 2021-12-09 18:42 | Electrocardiogram Report ---
Test Reason : Blood Pressure : / mmHG Vent. Rate : 119 BPM Atrial Rate : 119 BPM P-R Int : 134 ms QRS Dur : 090 ms QT Int : 318 ms P-R-T Axes : 058 016 060 degrees QTc Int : 447 ms Poor data quality, interpretation may be adversely affected Sinus tachycardia Poor R wave progression, consider anterior [place] vs. lead placement vs. LVH Abnormal ECG Confirmed by Luis M Zimmerman ([id number]) on 12/09/2021 6:42:01 PM Referred By: REFERRED SELF Confirmed By:Terrell Zimmerman
[2021-12-09] MEDS ORDERED: PHARMACIST DISCHARGE MED REC CONSULT PRN (19:39)
[2021-12-09] MEDS ORDERED: DEXTROSE 50% 50 ML SYRINGE IV PRN (19:39)
[2021-12-09] MEDS ORDERED: CARBOHYDRATES FOR HYPOGLYCEMIA PO PRN (19:39)
[2021-12-09] MEDS ORDERED: GLUCOSE 40% GEL 15 GM TUBE PO PRN (19:39)
[2021-12-09] MEDS ORDERED: GLUCOSE 10 TABS/TUBE PO PRN (19:39)
[2021-12-09] MEDS ORDERED: GLUCAGON FOR INJ 1 MG VIAL SQ PRN (19:39)
[2021-12-09] MEDS ORDERED: rOPINIRole HCL 1 MG TABLET PO SCH (21:00)
[2021-12-09] MEDS ORDERED: traZODone HCL 100 MG TAB PO SCH (21:00)
[2021-12-09] MEDS ORDERED: ATORVASTATIN 20 MG TAB PO SCH (21:00)
[2021-12-09] MEDS ORDERED: ASPIRIN 81 MG ECTAB PO SCH (21:00)
[2021-12-09] MEDS ORDERED: FAMOTIDINE 40 MG TABLET PO SCH (21:00)
[2021-12-09] MEDS ORDERED: PARoxetine HCL 20 MG TAB PO SCH (21:00)
[2021-12-09] MEDS: HEPARIN SOD 5,000 UNIT/0.5 ML VIAL SQ SCH (22:46)
[2021-12-09] MEDS: INSULIN ASPART PER UNIT SC SCH (22:53)
[2021-12-09 23:23] LABS: Troponin I High Sensitivity 15.3 pg/ml (0-14)
[2021-12-10 06:12] LABS: Basophils # (auto) 0.01 K/uL (0-0.2); Basophils % (auto) 0.1 %; Eosinophils # (auto) 0.06 K/uL (0-0.5); Eosinophils % (auto) 0.6 %; Hematocrit (blood only) 44.7 % (37-47); Hemoglobin 14.7 g/dL (12.0-16.0); Immature Granulocytes # (auto) 0.02 K/uL (0.00-0.02); Immature Granulocytes % (auto) 0.2 %; Lymphocytes # (auto) 4.12 K/uL (1.2-3.4); Lymphocytes % (auto) 39.8 %; Mean Corpuscular Hemoglobin 30.1 pg (25-34); Mean Corpuscular Hgb Conc 32.9 g/dL (32-36); Mean Corpuscular Volume 91.6 fL (80-100); Mean Platelet Volume 9.2 fL (7.4-10.4); Monocytes # (auto) 0.86 K/uL (0.11-0.59); Monocytes % (auto) 8.3 %; Neutrophils # (auto) 5.28 K/uL (1.4-6.5); Platelet Count 329 K/uL (130-400); RDW Coefficient of Variation 13.8 % (11.5-14.5); RDW Standard Deviation 45.8 fL (36.4-46.3); Red Blood Count 4.88 M/uL (4.2-5.4); White Blood Count 10.35 K/uL (4.8-10.8)
[2021-12-10] MEDS: HEPARIN SOD 5,000 UNIT/0.5 ML VIAL SQ SCH ×2 (06:15→12:59)
[2021-12-10] MEDS ORDERED: PANTOprazole 40 MG TAB PO SCH (06:30)
[2021-12-10 07:01] LABS: BUN Creatinine Ratio 14.1 (10-20); Calcium 9.4 mg/dl (8.5-10.1); Chol HDL Ratio 5.9 (0-5); Creatinine Clr Calc Pharmacy 75.1 ml/min; Est GFR (African American) 74.4 ml/min; Est GFR (Non-African American) 64.2 ml/min; Magnesium 1.9 mg/dl (1.7-2.4); Potassium 4.2 mmol/L (3.5-5.1)
[2021-12-10 08:17] LABS: Estimated Average Glucose 194 mg/dl; Hemoglobin A1C 8.4 % (4.5-5.6)
[2021-12-10] MEDS: INSULIN ASPART PER UNIT SC SCH ×3 (08:41→16:47)
[2021-12-10] MEDS ORDERED: CHOLECALCIFEROL 1,000 UNITS 25 MCG TAB PO SCH (09:00)
--- NOTE | 2021-12-10 13:43 | Neurology Consultation ---
Date of Consultation December 10, 2021 Assessment & Plan (1) Stroke-like symptom: 1. MRI brain with and without contrast- she is refusing 2. CTA head neck no significant stenosis or occlusion 3. TTE- no ASD 4. PT/OT speech for discharge needs 5. optimize HTN HLD, DM LDL <70 6. plavix 75 mg and aspirin 81 mg daily x 21 days then plavix alone for life. 7. ZIO as outpatient 8. will arrange follow up in 4-6 weeks in neurology Supervising Physician Co-Signing Physician Notes I have seen and discussed above patient with Dr Marissa Farmer, neurology. Patient seen and examined history reviewed reviewed reports of CTA and MRI. Patient felt nonspecifically unwell for about 2 days. She called 911 and does not recall all the details. 911 found her on her couch with a left facial droop left arm weakness. That resolved before coming to the hospital. She was not hypoglycemic. She was not incontinent or injured or and there was no tongue biting. She has no prior history of transient ischemic attack On her exam she is awake and alert speech and language are normal there is normal visual magaña if anything there is a minor flattening of the right nasolabial fold which is probably her baseline there is no drift lower extremity strength is full [id number] is normal gait is orthopedic Impression probable right hemisphere transient ischemic attack. Dual antiplatelet therapy for 21 days and then Plavix monotherapy. Signs and symptoms of dual antiplatelet therapy side effects were explained to the patient. Increase the intensity of her statin. Goal LDL 70 or less. Consider EEG. Patient should see us as an outpatient we will set her up for a Zio patch. Marissa Farmer MD History of Present Illness Reason for Consultation: stroke like symptoms Requesting Physician: Nehemiah Tovar MD Attending Physician: Nehemiah Tovar MD History of Present Illness Aleta is a 56 year old female with a PMH -DM2, HTN, HLD, JOSEE not currently on CPAP, depression, anxiety, CKD3, GERD w/ hx Contreras's, and obesity who presents to [facility] ED 12/09/21 as a stroke alert. She felt ok on 12/07/21Thursday . She felt not right and like "something was off in my head" but no significant pain or dyspnea on Thursday. then last night, she slept okay but when she woke up this morning she "felt like cramp" but no specific pain. She took her AM meds hoping this would help her feel better but instead she felt worse, got really dizzy and had to sit down so she called 911. When EMS arrived, she apparently had a mild left facial droop, LUE weakness, and slurred speech so a stroke alert was called.she has limited recollection of anything after calling 911. She gradually improved in the ED but had a residual headache behind her left eye. The weakness and slurred speech have resolved. She has a lot of anxiety over the recent of her mother in October. She essentially lives alone as her significant other is a long-distance casting trucker and is away most of the week. she does not smoke or drink EtOH She feels she is back to her baseline. her blood sugar during the event was 161. She has been under a tremendous stess since her mom got sick 5 months ago and then last month. She is very tearful when talking about it. Allergies Allergy/AdvReac Type Severity Reaction Status Date / Time latex Allergy Mild RASH, ITCHY Verified 12/09/21 15:00 Home Medications Medication Instructions Recorded Confirmed Type cholecalciferol (vitamin D3) 50 50 mcg PO QAM 09/26/21 12/09/21 History mcg (2,000 unit) capsule (Vitamin D3) dulaglutide 3 mg/0.5 mL 3 mg SUBCUT WK 09/26/21 12/09/21 History subcutaneous pen injector (Trulicity) losartan 100 mg tablet 100 mg PO QAM 09/26/21 12/09/21 History metoprolol succinate 100 mg 100 mg PO QAM 09/26/21 12/09/21 History tablet,extended release 24 hr paroxetine HCl 40 mg tablet 40 mg PO HS 09/26/21 12/09/21 History ropinirole 0.5 mg tablet 1 mg PO HS 09/26/21 12/09/21 History trazodone 100 mg tablet 100 mg PO HS 09/26/21 12/09/21 History apple cider vinegar 500 mg tablet 500 mg PO DAILY 12/09/21 12/09/21 History cyclobenzaprine 5 mg tablet 5 mg PO TID PRN 12/09/21 12/09/21 History diclofenac sodium 1 % topical gel 2 g TOPICAL TID PRN 12/09/21 12/09/21 History famotidine 40 mg tablet 40 mg PO HS 12/09/21 12/09/21 History glipizide 5 mg tablet, extended 5 mg PO QAM 12/09/21 12/09/21 History release 24 hr levocetirizine 5 mg tablet (Xyzal) 5 mg PO DAILY 12/09/21 12/09/21 History omega-3 fatty acids 1,000 mg 1,000 mg PO DAILY 12/09/21 12/09/21 History capsule aspirin 81 mg chewable tablet (St 81 mg PO DAILY 21 Days #21 tab 12/10/21 Rx Lg Aspirin) atorvastatin 40 mg tablet 40 mg PO HS #30 tab 12/10/21 Rx clopidogrel 75 mg tablet 75 mg PO DAILY #30 tab 12/10/21 Rx pantoprazole 40 mg tablet,delayed 40 mg PO DAILYBB #30 tab 12/10/21 Rx release Patient History Medical History (Updated 12/09/21 @ 18:07 by Addis Mendosa PA-C) Anxiety and depression Arthritis Contreras esophagus Cardiac murmur MILD/NO CARDS Chronic kidney disease ? STAGE Diabetes mellitus, type 2 GERD (gastroesophageal reflux disease) Hx of blood clots SUPERFICIAL BLOOD IN LEG>7 YEARS AGO Hyperlipidemia Hypertension Seasonal allergies Sleep apnea CPAP RECALLED>DOES NOT HAVE DEVICE. Previously used auto CPAP 5-20 cm Surgical History Family history of reaction to anesthesia DAUGHTER>SLOW TO WAKE UP H/O hernia repair AT 3 MONTHS OF AGE H/O shoulder surgery LEFT History of colonoscopy History of esophagogastroduodenoscopy (EGD) History of tonsillectomy Family History (Updated 12/09/21 @ 17:58 by Addis Mendosa PA-C) Mother Family history of diabetes mellitus Heart disease Brother Family history of diabetes mellitus Heart disease Grandfather (Maternal) Family hx of colon cancer Father Heart disease Denies family history of Stroke Social History (Updated 12/09/21 @ 17:59 by Addis Mendosa PA-C) Smoking Status: Never smoker Second Hand Exposure: Yes (IN THE PAST); Hx Alcohol Use: No Hx Substance Use: No Preferred Language: Afghan Communication Ability: Effective Middle Card Tender Required: No Beliefs That Will Affect Care: None marital status: Single Current Living Situation: Alone Other Information That Helps Us Care for You: No Feels Safe at Home: Yes Safety Concerns: Feels Safe At This Time Assistive Devices: CPAP Assistive Devices Comment: BiPAP recalled and no longer uses Review of Systems Review of Systems: All systems reviewed & are unremarkable except as noted in HPI & below Physical Exam Physical Exam: Physical Exam: Constitutional: over nourished, healthy and normal Ears, Nose, Mouth and Throat: mucous membranes moist, no injection and skin normal, eyes normal Cardiovascular: normal S-1 and S-2 and regular rate and rhythm Respiratory: course breath sounds Musculoskeletal: no peripheral edema and good distal pulses Skin: no stigmata of neurocutaneous disease noted and normal and intact Eyes: extraocular muscles intact (EOMI) and pupils equal, round and reactive to light (PERRL) NEUROLOGIC EXAMINATION: Mental status: Alert and interactive Oriented to full date and location Oriented to person Speech fluent with no evidence of aphasia Cranial Nerves slight decrease in naso labial fold on right Reflexes: Deep tendon reflexes were symmetrical and graded 2/5. Sensory: no sensory deficits, light and cool touch vibration Coordination: finger to nose and heel to dee intact Gait/Stance: Posture normal. Gait normal: with steady with steps, base, turning,and tandem gait. Motor: Negative for pronator drift of out stretched arms with eyes closed. 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 5/5, hip flex ext plantar flex ext 5/5 Results & Data ([facility]) Vital Signs (Past 12 Hours) Vital Signs Temp Pulse Resp BP Pulse Ox 12/10/21 11:50 36.4 C L 80 18 153/98 H 98 12/10/21 07:57 37.2 C 71 19 133/72 97 12/10/21 04:14 36.5 C 80 20 142/87 H 97 Laboratory Results Abnormal lab results 12/09/21 12/09/21 12/09/21 Range/Units 15:06 15:06 15:09 WBC 12.75 H (4.8-10.8) K/uL Hgb 16.6 H (12.0-16.0) g/dL POC Hgb (12.0-16.0) g/dl Hct 48.7 H (37-47) % POC Hct (37-47) % Neut # (Auto) 8.49 H (1.4-6.5) K/uL Lymph # (Auto) (1.2-3.4) K/uL [place] # (Auto) 0.97 H (0.11-0.59) K/uL POC Sodium (135-144) mmol/L Sodium 131 L (136-145) mmol/L Chloride 97 L (98-107) mmol/L Carbon Dioxide 20 L (21-32) mmol/L POC Total CO2 (24-31) mmol/L Anion Gap 14 H (3-11) Glucose 275 H (70-99(Fasting)) mg/dl POC Glucose 279 H (70-99) mg/dl POC Glucose (other) (70-99) mg/dl Hemoglobin A1c (4.5-5.6) % Calcium 10.3 H (8.5-10.1) mg/dl POC Ioniz Calcium Marni (1.12-1.32) mmol/l Magnesium 1.2 L (1.7-2.4) mg/dl Troponin I High Sens (0-14) pg/ml Triglycerides (0-150) mg/dl Cholesterol (0-200) mg/dl VLDL Cholesterol, Calc (0-30) mg/dl Cholesterol/HDL Ratio (0-5) Ur Specific [place] (1.000-1.030) Urine Protein (Negative) Urine Glucose (UA) (Negative) Urine Ketones (Negative) Urine WBC (Auto) (0-5) /hpf U Hyaline Cast (Auto) (0-5) /lpf U Epithel Cells (Auto) (0-5) /lpf Granular Casts (0) /lpf 12/09/21 12/09/21 12/09/21 Range/Units 15:10 15:11 15:22 WBC (4.8-10.8) K/uL Hgb (12.0-16.0) g/dL POC Hgb 16.7 H (12.0-16.0) g/dl Hct (37-47) % POC Hct 49 H (37-47) % Neut # (Auto) (1.4-6.5) K/uL Lymph # (Auto) (1.2-3.4) K/uL [place] # (Auto) (0.11-0.59) K/uL POC Sodium 133 L (135-144) mmol/L Sodium (136-145) mmol/L Chloride (98-107) mmol/L Carbon Dioxide (21-32) mmol/L POC Total CO2 18 L (24-31) mmol/L Anion Gap (3-11) Glucose (70-99(Fasting)) mg/dl POC Glucose 278 H (70-99) mg/dl POC Glucose (other) 282 H (70-99) mg/dl Hemoglobin A1c (4.5-5.6) % Calcium (8.5-10.1) mg/dl POC Ioniz Calcium Marni 1.06 L (1.12-1.32) mmol/l Magnesium (1.7-2.4) mg/dl Troponin I High Sens (0-14) pg/ml Triglycerides (0-150) mg/dl Cholesterol (0-200) mg/dl VLDL Cholesterol, Calc (0-30) mg/dl Cholesterol/HDL Ratio (0-5) Ur Specific [place] > 1.045 H (1.000-1.030) Urine Protein Trace H (Negative) Urine Glucose (UA) Trace H (Negative) Urine Ketones 1+ H (Negative) Urine WBC (Auto) 5-10 H (0-5) /hpf U Hyaline Cast (Auto) 5-10 H (0-5) /lpf U Epithel Cells (Auto) >30 H (0-5) /lpf Granular Casts 1-5 H (0) /lpf 12/09/21 12/09/21 12/10/21 Range/Units 20:13 22:28 05:42 WBC (4.8-10.8) K/uL Hgb (12.0-16.0) g/dL POC Hgb (12.0-16.0) g/dl Hct (37-47) % POC Hct (37-47) % Neut # (Auto) (1.4-6.5) K/uL Lymph # (Auto) 4.12 H (1.2-3.4) K/uL [place] # (Auto) 0.86 H (0.11-0.59) K/uL POC Sodium (135-144) mmol/L Sodium (136-145) mmol/L Chloride (98-107) mmol/L Carbon Dioxide (21-32) mmol/L POC Total CO2 (24-31) mmol/L Anion Gap (3-11) Glucose (70-99(Fasting)) mg/dl POC Glucose 158 H (70-99) mg/dl POC Glucose (other) (70-99) mg/dl Hemoglobin A1c (4.5-5.6) % Calcium (8.5-10.1) mg/dl POC Ioniz Calcium Marni (1.12-1.32) mmol/l Magnesium (1.7-2.4) mg/dl Troponin I High Sens 15.3 H D (0-14) pg/ml Triglycerides (0-150) mg/dl Cholesterol (0-200) mg/dl VLDL Cholesterol, Calc (0-30) mg/dl Cholesterol/HDL Ratio (0-5) Ur Specific [place] (1.000-1.030) Urine Protein (Negative) Urine Glucose (UA) (Negative) Urine Ketones (Negative) Urine WBC (Auto) (0-5) /hpf U Hyaline Cast (Auto) (0-5) /lpf U Epithel Cells (Auto) (0-5) /lpf Granular Casts (0) /lpf 12/10/21 12/10/21 12/10/21 Range/Units 05:42 05:42 07:29 WBC (4.8-10.8) K/uL Hgb (12.0-16.0) g/dL POC Hgb (12.0-16.0) g/dl Hct (37-47) % POC Hct (37-47) % Neut # (Auto) (1.4-6.5) K/uL Lymph # (Auto) (1.2-3.4) K/uL [place] # (Auto) (0.11-0.59) K/uL POC Sodium (135-144) mmol/L Sodium 135 L (136-145) mmol/L Chloride (98-107) mmol/L Carbon Dioxide (21-32) mmol/L POC Total CO2 (24-31) mmol/L Anion Gap (3-11) Glucose 150 H (70-99(Fasting)) mg/dl POC Glucose 169 H (70-99) mg/dl POC Glucose (other) (70-99) mg/dl Hemoglobin A1c 8.4 H (4.5-5.6) % Calcium (8.5-10.1) mg/dl POC Ioniz Calcium Marni (1.12-1.32) mmol/l Magnesium (1.7-2.4) mg/dl Troponin I High Sens (0-14) pg/ml Triglycerides 274 H (0-150) mg/dl Cholesterol 229 H (0-200) mg/dl VLDL Cholesterol, Calc 55 H (0-30) mg/dl Cholesterol/HDL Ratio 5.9 H (0-5) Ur Specific [place] (1.000-1.030) Urine Protein (Negative) Urine Glucose (UA) (Negative) Urine Ketones (Negative) Urine WBC (Auto) (0-5) /hpf U Hyaline Cast (Auto) (0-5) /lpf U Epithel Cells (Auto) (0-5) /lpf Granular Casts (0) /lpf 12/10/21 Range/Units 10:57 WBC (4.8-10.8) K/uL Hgb (12.0-16.0) g/dL POC Hgb (12.0-16.0) g/dl Hct (37-47) % POC Hct (37-47) % Neut # (Auto) (1.4-6.5) K/uL Lymph # (Auto) (1.2-3.4) K/uL [place] # (Auto) (0.11-0.59) K/uL POC Sodium (135-144) mmol/L Sodium (136-145) mmol/L Chloride (98-107) mmol/L Carbon Dioxide (21-32) mmol/L POC Total CO2 (24-31) mmol/L Anion Gap (3-11) Glucose (70-99(Fasting)) mg/dl POC Glucose 202 H (70-99) mg/dl POC Glucose (other) (70-99) mg/dl Hemoglobin A1c (4.5-5.6) % Calcium (8.5-10.1) mg/dl POC Ioniz Calcium Marni (1.12-1.32) mmol/l Magnesium (1.7-2.4) mg/dl Troponin I High Sens (0-14) pg/ml Triglycerides (0-150) mg/dl Cholesterol (0-200) mg/dl VLDL Cholesterol, Calc (0-30) mg/dl Cholesterol/HDL Ratio (0-5) Ur Specific [place] (1.000-1.030) Urine Protein (Negative) Urine Glucose (UA) (Negative) Urine Ketones (Negative) Urine WBC (Auto) (0-5) /hpf U Hyaline Cast (Auto) (0-5) /lpf U Epithel Cells (Auto) (0-5) /lpf Granular Casts (0) /lpf Diagnostic Findings CXR-No lines and tubes are seen. The cardiomediastinal silhouette is normal. The lungs are clear. No evidence of pleural effusion or pneumothorax. CT head-No acute intracranial hemorrhage, no evidence of acute territorial infarction or other acute intracranial disease process. CTA head-Exam mildly compromised by artifact. No central vessel occlusion or intracranial aneurysm identified. CTA neck-Exam mildly compromised by artifact. No stenosis or dissection within the bilateral common carotid, cervical internal carotid or vertebral arteries. TTE- 55-60% EF no ASD
[2021-12-10] MEDS ORDERED: STROKE PATIENT DISCHARGE STA (16:46)
--- NOTE | 2021-12-10 16:54 | Discharge Summary ---
Date of Service December 10, 2021 Admission HPI Per Admitting Provider This is a 56 y/o female with a PMH of DM2, HTN, dyslipidemia, JOSEE not currently on CPAP, depression, anxiety, CKD3, GERD w/ hx Contreras's, and obesity who presents to the ED this afternoon as a stroke alert. Pt reports feeling okay on Thursday (two days ago). Yesterday, she felt not right and like "something was off in my head" but no significant pain or dyspnea. Last night, she slept okay but when she woke up this morning she "felt like crap" but no specific pain. She checked her blood sugar but can't remember what it was. She took her AM meds hoping this would help her feel better but instead she felt worse, got really dizzy and had to sit down so she called 911. When EMS arrived, she apparently had a mild left facial droop, LUE weakness, and slurred speech so a stroke alert was called. Pt has limited to no recollection of anything after calling 911 to when I saw her in the ED for admission. In the ED, her symptoms have gradually improved although she reports a residual headache behind her left eye. The weakness and slurred speech have resolved. She also reports significant anxiety related to today's events and depression after the recent of her mother in October. She essentially lives alone as her significant other is a long-distance industrial truck driver and is away most of the week. Admission Exam Per Admitting Provider Constitutional: + morbidly obese; no acute distress Eyes: PERRL, conjunctivae normal, anicteric sclerae Neck: trachea midline Respiratory: no respiratory distress and no labored breathing Auscultation: lungs clear to auscultation bilaterally; no rales, no rhonchi and no wheezes Cardiovascular: Rate/Rhythm: regular rhythm and + tachycardic Vessels: dorsalis pedis pulses present and radial pulses present Extremities: no pedal edema Gastrointestinal (Abdomen): Inspection/Auscultation: normal bowel sounds; abdomen not distended Percussion/Palpation: abdomen soft; abdomen nontender Musculoskeletal: Head/Neck/Chest: normocephalic, head atraumatic and neck supple Skin: no rashes, warm and dry Neurologic: CN's II-XI intact bilaterally and moves all extremities; no focal motor deficits and not confused Psychiatric: Orientation: alert and oriented x 3 Affect: + anxious affect Mood: + depressed mood and + anxious mood Principal Diagnosis Strokelike symptoms Discharge Exam GENERAL: Alert and oriented x3. NAD, on RA. Obese. HEENT: No pallor, no icterus. Pupils equal, round and reactive to light. Oral mucosa moist. NECK: No JVD, no neck masses. HEART: S1 and S2 heard. Regular rate and rhythm. No murmur, no gallop. RESPIRATORY SYSTEM: Normal AP diameter. No accessory muscle use. No wheezing, no crackles. ABDOMEN: Soft, bowel sounds present, nontender, no distention. CENTRAL NERVOUS SYSTEM: No facial droop. Speech is clear. Obeys simple commands. Moves extremities. EXTREMITIES: No edema, no erythema seen. Discharge Data Allergies Allergy/AdvReac Type Severity Reaction Status Date / Time latex Allergy Mild RASH, ITCHY Verified 12/09/21 15:00 Consultations 12/09/21 15:56 ED Decision to Admit Stat 12/09/21 19:39 Consult Neurology Routine Ordered Studies 12/09/21 14:08 CT angio head w con Stat CT angio neck with con Stat CT head/brain wo con Stat 12/09/21 17:26 MR brain wo/w con Routine Hospital Course (1) Stroke-like symptom: 56-year-old lady was managed for the following while in hospital: (1) Stroke-like symptom: Plan: In the ED, symptoms have mostly resolved. Initial CT negative for ischemia. Per telestroke, not a candidate for tPA with last known well 2-3 days ago. -Was monitored over telemetry, neurology evaluated, patient denied MRI [offered Ativan, still denied]. Echo done, reviewed. Troponin negative trend. -Per neuro, DAPT for 21 days followed by Plavix rest of the life. Omeprazole discontinued upon discharge. Pantoprazole added. -LDL was elevated, home dose of atorvastatin increased. Patient to follow-up with PCP for lipid medication optimization down the road. -Discussed with neurology, okay with discharge from the point. (2) Hypomagnesemia: Plan: Repleted with IV Mag x 3 g . Stable. (3) Acute hyponatremia: Likely due to decreased appetite, improving. (4) CKD (chronic kidney disease) stage 3, GFR 30-59 ml/min: (5) Hyperlipidemia: Plan: -LDL elevated, Lipitor dose increased. Patient to follow-up with PCP for further optimization. (6) GERD (gastroesophageal reflux disease): (7) Diabetes mellitus, type 2: Plan: -A1c elevated, patient to follow-up with PCP closely for her diabetes management. - Diabetic diet - Insulin sliding scale (8) Seasonal allergies: (9) Sleep apnea: Plan: - Resume CPAP with prior settings - will need outpatient sleep follow-up Patient being discharged home with following instruction at the point of discharge: Follow-up with your primary care physician within a week time. Neurology evaluated you while inpatient, you are being discharged on aspirin and Plavix. Take both for 21 days and then take only Plavix for life. Since you will be on Plavix, do not take your home omeprazole. Your omeprazole is being substituted with pantoprazole. You will get new orders for pantoprazole. You will need heart monitor as an outpatient, follow-up with neurology office for the same. Follow-up with your neurology as an outpatient in 4 to 6 weeks. Your Lipitor dose has been increased from 20 mg daily in the evening to 40 mg. Your LDL was elevated, follow-up with your primary care physician as an outpatient for optimization of your lipid medications. Your hemoglobin A1c was elevated while in hospital, recommend to follow-up with your primary care clinic closely for close monitoring of your diabetes. Take your medications as prescribed. Total Time Total Time Spent Total Time Spent (In Minutes): 40 Discharge Plan Discharge Items Patient Disposition: Home - Self-Care Reason For Visit: STROKE-LIKE SYMPTOMS, HYPOMAG Discharge Diagnosis: Strokelike symptoms Activity: Resume your previous activity Non-emergency contact: Primary Care Provider Call non-emergency contact if: you have any medication questions and your symptoms worsen Follow-up/Referrals: Skylar Guzman PA-C [Outside Practitioners] - (Date & Time 12/16/2021 11:00 AM Provider Fay Rodarte DO Department [facility] ) Diet: Carb Consistent or DM2 and Heart Healthy Addtl Attending Provider Instructions: Follow-up with your primary care physician within a week time. Neurology evaluated you while inpatient, you are being discharged on aspirin and Plavix. Take both for 21 days and then take only Plavix for life. Since you will be on Plavix, do not take your home omeprazole. Your omeprazole is being substituted with pantoprazole. You will get new orders for pantoprazole. You will need heart monitor as an outpatient, follow-up with neurology office for the same. Follow-up with your neurology as an outpatient in 4 to 6 weeks. Your Lipitor dose has been increased from 20 mg daily in the evening to 40 mg. Your LDL was elevated, follow-up with your primary care physician as an o utpatient for optimization of your lipid medications. Your hemoglobin A1c was elevated while in hospital, recommend to follow-up with your primary care clinic closely for close monitoring of your diabetes. Take your medications as prescribed. Pending Studies at Discharge: No Stand-Alone Forms: Medications to Prevent Stroke, My [facility], Smoking Cessation Medications and DC Order Prescriptions: New atorvastatin 40 mg Tablet 40 mg PO HS Qty: 30 RF: 0 aspirin [St Lg Aspirin] 81 mg tablet,chewable 81 mg PO DAILY 21 Days Qty: 21 RF: 0 clopidogrel 75 mg tablet 75 mg PO DAILY Qty: 30 RF: 0 pantoprazole 40 mg Tablet,Delayed Release (Dr/Ec) 40 mg PO DAILYBB Qty: 30 RF: 0 Continued metoprolol succinate 100 mg Tablet Extended Release 24 Hr 100 mg PO QAM RF: 0 trazodone 100 mg Tablet 100 mg PO HS RF: 0 ropinirole 0.5 mg Tablet 1 mg PO HS RF: 0 paroxetine HCl 40 mg Tablet 40 mg PO HS RF: 0 losartan 100 mg Tablet 100 mg PO QAM RF: 0 cholecalciferol (vitamin D3) [Vitamin D3] 50 mcg (2,000 unit) Capsule 50 mcg PO QAM RF: 0 Trulicity 3 mg/0.5 mL Pen Injector 3 mg SUBCUT WK RF: 0 famotidine 40 mg Tablet 40 mg PO HS RF: 0 cyclobenzaprine 5 mg Tablet 5 mg PO TID PRN (Reason: MUSCLE SPASMS) RF: 0 levocetirizine [Xyzal] 5 mg Tablet 5 mg PO DAILY RF: 0 omega-3 fatty acids 1,000 mg Capsule 1,000 mg PO DAILY RF: 0 apple cider vinegar 500 mg Tablet 500 mg PO DAILY RF: 0 diclofenac sodium 1 % gel 2 g TOPICAL TID PRN (Reason: Pain) RF: 0 glipizide 5 mg tablet extended release 24 hr 5 mg PO QAM RF: 0 Discontinued atorvastatin 20 mg Tablet 20 mg PO HS RF: 0 omeprazole 40 mg Capsule,Delayed Release(Dr/Ec) 40 mg PO DAILYBB RF: 0 aspirin [Aspir-81] 81 mg Tablet,Delayed Release (Dr/Ec) 81 mg PO HS RF: 0 Discharge Orders: Discharge Order (Routine); Ordered 12/10/21 Ordered By: Nehemiah Tovar Admission Data Admit Date/Time: 12/09/21 16:30 Attending Provider: Nehemiah Tovar Admit Provider: Nehemiah Tovar Primary Care Provider: [facility],Medicine Other Providers: Nehemiah Tovar ; Marissa Farmer
--- NOTE | 2021-12-10 20:48 | Pharmacy Report ---
Pharmacist Stroke Counseling - Date of Service December 10, 2021 - Scope: Pharmacy has been consulted to provide medication discharge counseling for this patient admitted with possible stroke as per the Pharmacist Discharge Counseling for Stroke Patients Protocol. - Medications on Discharge: Home Medications Medication Instructions Recorded Confirmed cholecalciferol (vitamin D3) 50 50 mcg PO QAM 09/26/21 12/09/21 mcg (2,000 unit) capsule (Vitamin D3) dulaglutide 3 mg/0.5 mL 3 mg SUBCUT WK 09/26/21 12/09/21 subcutaneous pen injector (Trulicity) losartan 100 mg tablet 100 mg PO QAM 09/26/21 12/09/21 metoprolol succinate 100 mg 100 mg PO QAM 09/26/21 12/09/21 tablet,extended release 24 hr paroxetine HCl 40 mg tablet 40 mg PO HS 09/26/21 12/09/21 ropinirole 0.5 mg tablet 1 mg PO HS 09/26/21 12/09/21 trazodone 100 mg tablet 100 mg PO HS 09/26/21 12/09/21 apple cider vinegar 500 mg tablet 500 mg PO DAILY 12/09/21 12/09/21 cyclobenzaprine 5 mg tablet 5 mg PO TID PRN 12/09/21 12/09/21 diclofenac sodium 1 % topical gel 2 g TOPICAL TID PRN 12/09/21 12/09/21 famotidine 40 mg tablet 40 mg PO HS 12/09/21 12/09/21 glipizide 5 mg tablet, extended 5 mg PO QAM 12/09/21 12/09/21 release 24 hr levocetirizine 5 mg tablet (Xyzal) 5 mg PO DAILY 12/09/21 12/09/21 omega-3 fatty acids 1,000 mg 1,000 mg PO DAILY 12/09/21 12/09/21 capsule New Rx's Medication Instructions Recorded aspirin 81 mg chewable tablet (St 81 mg PO DAILY 21 Days #21 tab 12/10/21 Lg Aspirin) atorvastatin 40 mg tablet 40 mg PO HS #30 tab 12/10/21 clopidogrel 75 mg tablet 75 mg PO DAILY #30 tab 12/10/21 pantoprazole 40 mg tablet,delayed 40 mg PO DAILYBB #30 tab 12/10/21 release - Action: The above medications, specifically ones for stroke treatment/prophylaxis, have been reviewed in detail with the patient prior to discharge. This includes indication, common adverse reactions, drug interactions, and medication administration. Medication counseling has been employed using the teach-back method to ensure understanding. - Outcome: The patient has demonstrated understanding of the medications. Additional comments: Spoke over the phone with patient today- she was very pleasant and receptive to counseling. Reviewed new medications to prevent stroke including Aspirin for 21 days only, Atorvastatin dose increase, Plavix, & stopping Prilosec for Protonix. Discussed why they are being used and common side effects in great detail. Reviewed how to use the medications, what to do if doses are missed, common drug interactions, common side effects, what to watch out for while using the medications. Pt verbalized understanding and restated the cox points of each medication. Thank you for allowing pharmacy to be involved in the care of this patient. Please call [phone] with any additional questions
[2021-12-10] MEDS ORDERED: ATORVASTATIN 40 MG TAB PO SCH (21:00)
== END 2021-12-10 18:07 | disposition home or self-care (01) | DRG 65 ==
LOC: ED 14:34 → 2S 16:30 → INTOOBSV 16:30 → 2S 17:55